=== PATIENT | male | born 1960 | race Caucasian/White ===

== ENCOUNTER 2016-07-26 20:47 | Observation (INO) | payer OTHER ==
[2016-07-26] MEDS ORDERED: NITROGLYCERIN 2% OINTMENT - 1GM PACKET TD ONE (21:13)
--- NOTE | 2016-07-26 21:15 | PDOC ---
[id number] No Limitations - History of Present Illness Initial Comments: 07/26/16 21:59 The patient is a 55 year old male with a significant past medical history of hypertension, angioplasty and hyperlipidemia who presents to the ED with lightheadedness, chest pain and SOB. Patient reports chest tightness. He notes that he feels flushed. He also reports a headache. Patient notes that he ran out of his hypertension medication and have not taken it for 2 weeks. He also notes that he was diagnosed with pneumonia 5 days ago and finished his course of abx this week. Patient notes that he is going through hard time and has gained some undesired weight and is concerned about his health. <Chacha Sullivan - Last Filed: 07/26/16 22:01> <Willow Collins - Last Filed: 07/27/16 04:10> - General Chief Complaint: Chest Pain Stated Complaint: CHEST PAIN/BP PROBLEM Time Seen by Provider: 07/26/16 21:07 Past History <Chacha Sullivan - Last Filed: 07/26/16 22:01> - Past Medical History HTN: Yes Hypercholesterolemia: Yes - Surgical History Abdominal Surgery: Yes (hernia repair-LEFT) Cardiac Surgery: Yes (CARDIAC CATH-NEGATIVE) - Immunization History Immunization Up to Date: Yes - Psycho/Social/Smoking Cessation Hx Anxiety: Yes Suicidal Ideation: No Smoking History: Never smoked Have you smoked in the past 12 months: No Number of Cigarettes Smoked Daily: 0 Information on smoking cessation initiated: No Hx Alcohol Use: Yes (3x/week) Drug/Substance Use Hx: No Substance Use Type: Alcohol <Willow Collins - Last Filed: 07/27/16 04:10> - Past Medical History Allergies/Adverse Reactions: Allergies Allergy/AdvReac Type Severity Reaction Status Date / Time No Known Drug Allergies Allergy Verified 07/26/16 20:49 shellfish derived Allergy "PALATE Verified 07/26/16 20:49 BECOMES ITCHY-AFTER EATING LOBSTER" Home Medications: Ambulatory Orders Aspirin [ASA -] 81 mg PO DAILY 01/03/14 Losartan Potassium 25 mg PO DAILY 01/23/14 Moxifloxacin HCl [Avelox] 400 mg PO DAILY 07/27/16 Prednisone [Deltasone -] 10 mg PO DAILY 07/27/16 Review of Systems - Review of Systems Able to Perform ROS?: Yes Comments:: 07/26/16 22:00 GENERAL/CONSTITUTIONAL: +weakness. No fever or chills. HEAD, EYES, EARS, NOSE AND THROAT: No change in vision. No ear pain or discharge. No sore throat. CARDIOVASCULAR:+ chest pain +shortness of breath, lightheadedness. RESPIRATORY: No cough, wheezing, or hemoptysis. GASTROINTESTINAL: No nausea, vomiting, diarrhea or constipation. GENITOURINARY: No dysuria, frequency, or change in urination. MUSCULOSKELETAL: No joint or muscle swelling or pain. No neck or back pain. SKIN: No rash NEUROLOGIC: + headache, +vertigo, loss of consciousness, or change in strength/ sensation. ENDOCRINE: No increased thirst. No abnormal weight change. HEMATOLOGIC/LYMPHATIC: No anemia, easy bleeding, or history of blood clots. ALLERGIC/IMMUNOLOGIC: No hives or skin allergy. <Chacha Sullivan - Last Filed: 07/26/16 22:01> *Physical Exam - Vital Signs Last Vital Signs Temp Pulse Resp BP Pulse Ox 97.8 F 96 H 16 165/101 97 07/26/16 20:50 07/26/16 20:50 07/26/16 20:50 07/26/16 20:50 07/26/16 20:50 - Physical Exam Comments: 07/26/16 22:01 GENERAL: Awake, alert, and fully oriented, in no acute distress HEAD: No signs of trauma EYES: PERRLA, EOMI, sclera anicteric, conjunctiva clear ENT: +R TM bulging, erythematous and edematous. Hearing grossly normal, nares patent, oropharynx clear without exudates. Moist mucosa NECK: Normal ROM, supple, no lymphadenopathy, JVD, or masses LUNGS: Breath sounds equal, clear to auscultation bilaterally. No wheezes, and no crackles HEART: Regular rate and rhythm, normal S1 and S2, no murmurs, rubs or gallops ABDOMEN: Soft, nontender, normoactive bowel sounds. No guarding, no rebound. No masses EXTREMITIES: Normal range of motion, no edema. No clubbing or cyanosis. No cords, erythema, or tenderness NEUROLOGICAL: Cranial nerves II through XII grossly intact. Normal speech, normal gait SKIN: Warm, Dry, normal turgor, no rashes or lesions noted. <Chacha Sullivan - Last Filed: 07/26/16 22:01> - Vital Signs Last Vital Signs Temp Pulse Resp BP Pulse Ox 97.8 F 96 H 16 165/101 97 07/26/16 20:50 07/26/16 20:50 07/26/16 20:50 07/26/16 20:50 07/26/16 20:50 <Willow Collins - Last Filed: 07/27/16 04:10> Heart Score/ECG Review #1 07/26/16 22:[address] Collins. Impression: normal sinus rhythm, vent rate at 94 bpm. <Chacha Sullivan - Last Filed: 07/26/16 22:01> ED Treatment Course - LABORATORY CBC & Chemistry Diagram: 07/26/16 21:19 07/26/16 21:19 - ADDITIONAL ORDERS Additional order review: 07/26/16 21:19 RBC 4.68 MCV 89.5 MCHC 33.8 RDW 14.1 MPV 7.8 Neutrophils % 60.1 Lymphocytes % 28.3 D Monocytes % 10.8 H Eosinophils % 0.3 Basophils % 0.5 - Medications Given in the ED: ED Medications Discontinued Medications Generic Name Dose Route Start Last Admin Trade Name Jg PRN Reason Stop Dose Admin Aspirin 162 mg 07/26/16 21:24 07/26/16 21:39 Asa - PO 07/26/16 21:25 162 mg ONCE ONE Administration Nitroglycerin 1 inch 07/26/16 21:13 07/26/16 21:39 Nitro-Bid 2% Paste - TD 07/26/16 21:14 1 inch ONCE ONE Administration <Chacha Sullivan - Last Filed: 07/26/16 22:01> - LABORATORY CBC & Chemistry Diagram: 07/26/16 21:19 07/26/16 21:19 <Willow Collins - Last Filed: 07/27/16 04:10> Medical Decision Making - Medical Decision Making 07/27/16 04:06 Pt comes with chest pain. He states that he hasn't had his BP meds in 2 weeks, as he ran out and he just never followed up to refill them. He has been under stress as he is and he has a 12 yo daughter, and he works and he has been drinking too much alcohol and eating foods that are bad for him. He also states that he had bilateral hip replacement and he cannot run or exercise and as a result he gained a lot of weight. Pt has a normal sinus EKG, same pattern as old. He has a clear CXR and he has initial normal troponin and CPK. His CK MB is elevated. His BP came down with metoprolol, enalapril, and SLNTG. He was given asa; also tylenol for headache <Willow Collins - Last Filed: 07/27/16 04:10> *DC/Admit/Observation/Transfer - Attestations Scribe Attestion: 07/26/16 22:01 Documentation prepared by DUYEN Chung, acting as certified court/medical interpreter for Willow Collins MD. <Chacha Sullivan - Last Filed: 07/26/16 22:01> - Discharge Dispostion Admit: Yes <Willow Collins - Last Filed: 07/27/16 04:10> Diagnosis at time of Disposition: Chest pain Qualifiers: Chest pain type: unspecified Qualified Code(s): R07.9 - Chest pain, unspecified
[2016-07-26] MEDS ORDERED: ASPIRIN 81 MG CHEWABLE TABLETS PO ONE (21:24)
[2016-07-26] MEDS ORDERED: ASPIRIN 81 MG CHEWABLE TABLETS ONE (21:31)
[2016-07-26 21:50] LABS: BASOPHIL 0.5 % (0-2.0); EOSINOPHIL 0.3 % (0-4.5); MCH 30.2 pg (25.7-33.7); MCHC 33.8 g/dl (32.0-35.9); MEAN CELL VOLUME 89.5 fl (80-96); MEAN PLT VOLUME 7.8 fl (7.5-11.1); NEUTROPHILS 60.1 % (42.8-82.8); PLATELET COUNT 311 K/MM3 (134-434); RDW 14.1 % (11.9-15.9); WHITE BLOOD COUNT 9.3 K/mm3 (4.0-10.0)
[2016-07-26] MEDS ORDERED: METOPROLOL TARTRATE 50 MG TABLET (FP) PO ONE (21:51)
[2016-07-26] MEDS ORDERED: METOPROLOL TARTRATE 5 MG/5 ML VIAL IVPUSH ONE (21:51)
[2016-07-26] MEDS ORDERED: LOSARTAN 50MG/HCTZ 12.5MG 1 TAB (FP) PO ONE (21:51)
[2016-07-26] MEDS ORDERED: METOPROLOL TARTRATE 5 MG/5 ML VIAL ONE (22:06)
[2016-07-26] MEDS ORDERED: METOPROLOL TARTRATE 50 MG TABLET (FP) ONE (22:06)
[2016-07-26 22:15] LABS: ALBUMIN 3.4 g/dl (3.4-5.0); ANION GAP 12 (8-16); BILIRUBIN,TOTAL 0.4 mg/dL (0.2-1.0); CALCIUM 8.5 mg/dL (8.5-10.1); CO2 28 mmol/L (21-32); CREATININE 1.2 mg/dL (0.7-1.3); GLUCOSE,RANDOM 123 mg/dL (74-106); SGOT/AST 44 U/L (15-37); SGPT/ALT 51 U/L (12-78); TOT PROT 6.3 g/dl (6.4-8.2)
[2016-07-26 22:17] LABS: ALK PHOS 77 U/L (45-117); TROPONIN I < 0.02 ng/ml (0.00-0.05)
[2016-07-26] MEDS ORDERED: MAGNESIUM SULF 50% (8.12 MEQ/2 ML-1 GM VIAL) IVPB ONE (22:27)
[2016-07-26] MEDS ORDERED: POTASSIUM CHLORIDE TABS 20 MEQ TABLET.ER (FP) PO ONE ×2 (22:27→22:45)
[2016-07-26] MEDS ORDERED: MAGNESIUM SULF 50% (8.12 MEQ/2 ML-1 GM VIAL) ONE (22:45)
[2016-07-26] MEDS ORDERED: ACETAMINOPHEN 325 MG TABLET (FP) PO ONE (23:56)
[2016-07-27] MEDS ORDERED: ACETAMINOPHEN 325 MG TABLET (FP) ONE ×2 (00:04→03:14)
--- NOTE | 2016-07-27 00:46 | PN ---
<Keanu Castillo - Last Filed: 07/27/16 00:46> Teaching Attending Note Name of Resident: Meron Cox ATTENDING PHYSICIAN STATEMENT I saw and evaluated the patient. I reviewed the resident's note and discussed the case with the resident. I agree with the resident's findings and plan as documented. SUBJECTIVE: OBJECTIVE: ASSESSMENT AND PLAN: <Robyn Sandhu - Last Filed: 07/27/16 02:54> Teaching Attending Note ATTENDING PHYSICIAN STATEMENT I saw and evaluated the patient. I reviewed the resident's note and discussed the case with the resident. I agree with the resident's findings and plan as documented. SUBJECTIVE: Patient is a 55 yo M with a PMHx of HTN and HLD who presents with chest pain. He describes the pain as chest tightness which was still present upon evaluation. Patient reports feeling increased anxiety yesterday after he stopped drinking. Patient notes he drinks .5 pints 2-3 days a week. He reports that he has been more stressed recently and has gained wait s/p hip surgery. Patient reports associated SOB for the past 4 days, headache, and diaphoresis. Patient also reports having pneumonia for the past 5 days and still feels congested. Denies: vision changes, nausea, fever, chills, vomiting, diarrhea and abdominal pain. Family Hx: Mother had CHF OBJECTIVE: Last Vital Signs Temp Pulse Resp BP Pulse Ox 97.8 F 79 19 140/92 100 07/26/16 20:50 07/26/16 22:18 07/26/16 22:18 07/26/16 23:47 07/26/16 22:18 GENERAL: Awake, alert, and fully oriented. Obese male resting in bed in no acute distress HEENT: Atraumatic. PERRLA, EOMI. Moist mucosa. No JVD LUNGS: No distress, speaks full sentences, clear to auscultation bilaterally HEART: Regular rate and rhythm, normal S1 and S2, no murmurs, rubs or gallops, peripheral pulses normal and equal bilaterally. ABDOMEN: Soft, nontender, normoactive bowel sounds. No guarding, no rebound. No masses EXTREMITIES: Normal inspection, Normal range of motion, no edema. No clubbing or cyanosis. NEUROLOGICAL: Cranial nerves II through XII grossly intact. Normal speech, normal gait, no focal sensorimotor deficits SKIN: Warm, Dry, normal turgor, no rashes or lesions noted. CBCD WBC 9.3 K/mm3 (4.0-10.0) 07/26/16 21:19 RBC 4.68 M/mm3 (4.00-5.60) 07/26/16 21:19 Hgb 14.1 GM/dL (11.7-16.9) 07/26/16 21:19 Hct 41.9 % (35.4-49) 07/26/16 21:19 MCV 89.5 fl (80-96) 07/26/16 21:19 MCHC 33.8 g/dl (32.0-35.9) 07/26/16 21:19 RDW 14.1 % (11.9-15.9) 07/26/16 21:19 Plt Count 311 K/MM3 (134-434) 07/26/16 21:19 MPV 7.8 fl (7.5-11.1) 07/26/16 21:19 CMP Sodium 145 mmol/L (136-145) 07/26/16 21:19 Potassium 3.3 mmol/L (3.5-5.1) L 07/26/16 21:19 Chloride 105 mmol/L (98-107) 07/26/16 21:19 Carbon Dioxide 28 mmol/L (21-32) 07/26/16 21:19 Anion Gap 12 (8-16) 07/26/16 21:19 BUN 17 mg/dL (7-18) 07/26/16 21:19 Creatinine 1.2 mg/dL (0.7-1.3) 07/26/16 21:19 Creat Clearance w eGFR > 60 (>60) 07/26/16 21:19 Calcium 8.5 mg/dL (8.5-10.1) 07/26/16 21:19 Total Bilirubin 0.4 mg/dL (0.2-1.0) 07/26/16 21:19 AST 44 U/L (15-37) H D 07/26/16 21:19 ALT 51 U/L (12-78) D 07/26/16 21:19 Alkaline Phosphatase 77 U/L (45-117) 07/26/16 21:19 Total Protein 6.3 g/dl (6.4-8.2) L 07/26/16 21:19 Albumin 3.4 g/dl (3.4-5.0) 07/26/16 21:19 ASSESSMENT AND PLAN: 55 yo M with a PMHx of HTN and HLD who presents with chest pain. 1.) Chest pain, atypical, anxiety related -Heart score 3 -Trend ECG and troponins -Aspirin -Nitro/morphine PRN pain -O2 -Received BB in ED 2.) SOB probably related pneumonia -Consider Echo can be done outpatient 3.) HLD -Check lipid panel -Continue home meds 4.) HTN -Continue home meds 5.) Hypokalemia -Replete -Check Mg 6.) DVT ppx -Low risk ambulate -SCDs Place in observation Tele Documentation prepared by Robyn Sandhu, acting as biomedical field service engineer for Keanu Castillo M.D.
--- NOTE | 2016-07-27 02:21 | HP ---
CHIEF COMPLAINT: Chest tightness from anxiety PCP: Not on staff HISTORY OF PRESENT ILLNESS: Patient is a 55 year old male with a PMHx of HTN, HLD, and anxiety who presents to the ED complaining of constant chest tightness associated with diaphoresis and headache that began one day ago and associates it with anxiety. Patient states he noticed the chest tightness and anxiety begins after drinking vodka, which he does 2-3 times a week. Patient also reports he's been more stressed and anxious lately due to his recent weight gain s/p hip surgery as well his recent diagnosis of pneumonia that he just completed a course of antibiotics for. Patient also reports shortness of breath for the last week due to his recent diagnosis of pneumonia, which escalated his anxiety. He does admit to not taking his blood pressure medications for over two week because he did not cloth picker his medications from the pharmacy. Otherwise, Patient denies fever, chills, nausea, vomiting, abdominal pain, diarrhea, acute visual changes, dizziness, dysuria, hematuria, frequency. ER course was notable for: (1) ASA, Hyzaar, Potassim chloride, Lopressor PO, Lopressor IVP, Magnesium Sulfate, Nitroglycerin 2% Paste, Tylenol (2) Chest x-ray (3) EKG Recent Travel: Denies PAST MEDICAL HISTORY: HTN, HLD, and anxiety PAST SURGICAL HISTORY: Left Hernia repair Social History: Smoking: Denies Alcohol: Half a pint 2-3 days a week Drugs: Denies Family History: Mother had CHF Allergies: Shellfish derived Allergy (Verified 07/26/16 20:49) "PALATE BECOMES ITCHY-AFTER EATING LOBSTER" HOME MEDICATIONS: Medication Instructions Recorded Aspirin [ASA -] 81 mg PO DAILY 01/03/14 Losartan Potassium 25 mg PO DAILY 01/23/14 Moxifloxacin HCl [Avelox] 400 mg PO DAILY 07/27/16 Prednisone [Deltasone -] 10 mg PO DAILY 07/27/16 REVIEW OF SYSTEMS CONSTITUTIONAL: diaphoresis Absent: fever, chills, generalized weakness, malaise, loss of appetite, weight change HEENT: Absent: rhinorrhea, nasal congestion, throat pain, throat swelling, difficulty swallowing, mouth swelling, ear pain, eye pain, visual changes CARDIOVASCULAR: chest tightness Absent: syncope, palpitations, irregular heart rate, lightheadedness, peripheral edema RESPIRATORY: cough, shortness of breath Absent: dyspnea with exertion, orthopnea, wheezing, stridor, hemoptysis GASTROINTESTINAL: Absent: abdominal pain, abdominal distension, nausea, vomiting, diarrhea, constipation, melena, hematochezia GENITOURINARY: Absent: dysuria, frequency, urgency, hesitancy, hematuria, flank pain, genital pain MUSCULOSKELETAL: Absent: myalgia, arthralgia, joint swelling, back pain, neck pain SKIN: Absent: rash, itching, pallor HEMATOLOGIC/IMMUNOLOGIC: Absent: easy bleeding, easy bruising, lymphadenopathy, frequent infections ENDOCRINE: Absent: unexplained weight gain, unexplained weight loss, heat intolerance, cold intolerance NEUROLOGIC: Absent: headache, focal weakness or paresthesias, dizziness, unsteady gait, seizure, mental status changes, bladder or bowel incontinence PSYCHIATRIC: anxiety Absent: depression, suicidal or homicidal ideation, hallucinations. PHYSICAL EXAMINATION GENERAL: Awake, alert, and fully oriented, in no acute distress. HEENT: Normal with no signs of trauma. Pupils equal, round and reactive to light , extraocular movements intact, sclera anicteric, conjunctiva clear. Oropharynx clear without exudates. Moist mucous membranes. NECK: Normal range of motion, supple without lymphadenopathy, JVD, or masses. LUNGS: Breath sounds equal, clear to auscultation bilaterally. No wheezes, and no crackles. No accessory muscle use. HEART: Regular rate and rhythm, normal S1 and S2 without murmur, rub or gallop. ABDOMEN: Soft, nontender, not distended, normoactive bowel sounds, no guarding, no rebound, no masses. No hepatomegaly or splenomegaly. MUSCULOSKELETAL: Normal range of motion at all joints. No bony deformities or tenderness. No CVA tenderness. EXTREMITIES: No calf tenderness. No peripheral edema. NEUROLOGICAL: No focal deficits. Normal speech. SKIN: Warm, dry, normal turgor, no rashes or lesions noted. Laboratory Results - last 24 hr 07/26/16 07/26/16 07/26/16 21:19 21:19 21:19 WBC 9.3 RBC 4.68 Hgb 14.1 Hct 41.9 MCV 89.5 MCHC 33.8 RDW 14.1 Plt Count 311 MPV 7.8 Neutrophils % 60.1 Lymphocytes % 28.3 D Monocytes % 10.8 H Eosinophils % 0.3 Basophils % 0.5 Sodium 145 Potassium 3.3 L Chloride 105 Carbon Dioxide 28 Anion Gap 12 BUN 17 Creatinine 1.2 Creat Clearance w eGFR > 60 Random Glucose 123 H Calcium 8.5 Total Bilirubin 0.4 AST 44 H D ALT 51 D Alkaline Phosphatase 77 Creatine Kinase 196 Creatine Kinase Index 2.0 CK-MB (CK-2) 3.927 H CK-MB (CK-2) Rel Index Cancelled Troponin I < 0.02 Total Protein 6.3 L Albumin 3.4 07/27/16 04:35 WBC RBC Hgb Hct MCV MCHC RDW Plt Count MPV Neutrophils % Lymphocytes % Monocytes % Eosinophils % Basophils % Sodium Potassium Chloride Carbon Dioxide Anion Gap BUN Creatinine Creat Clearance w eGFR Random Glucose Calcium Total Bilirubin AST ALT Alkaline Phosphatase Creatine Kinase Creatine Kinase Index CK-MB (CK-2) CK-MB (CK-2) Rel Index Troponin I 0.02 Total Protein Albumin Chest X-ray: No acute Pathology EKG: NSR @94 BPM, (-) ST-T changes ASSESSMENT/PLAN: Patient is 55 year old male with a PMHx of HTN, HLD, and anxiety who presented for constant atypical chest pain that began one day ago associated with diaphoresis, headache, and shortness of breath, and anxiety. Patient admitted to telemetry for further monitoring and management. Atypical Chest Pain -Likely anxiety related -Heart score: 3 -Troponin negative x1. Second pending -ASA daily -Nitroglycerin given in ED -Will require ECHO done as outpatient Shortness of breath -Likely from recent pneumonia -Continue Nasal Cannula -Completed antibiotic Moxifloxacin 400mg daily -Continue Prednisone 10mg daily HTN -Continue Cozaar 25mg po -Continue to monitor BP HLD -On no medications Anxiety -Xanax 0.5mg daily F/E/N -On no fluids -Hypokalemia. Potassium chloride given -Sodium and cholesterol controlled diet Prophylaxis -SCD's for DVT -No GI needed Disposition -Full code -Admitted to telemetry for observation. Will continue to monitor on cardiac monitoring. Visit type - Emergency Visit Emergency Visit: Yes ED Registration Date: 07/27/16 Care time: The patient presented to the Emergency Department on the above date and was hospitalized for further evaluation of their emergent condition. - New Patient This patient is new to me today: Yes Date on this admission: 07/27/16 - Critical Care Critical Care patient: No
[2016-07-27] MEDS ORDERED: ALPRAZolam 0.25 MG TABLET PO ONE (02:26)
[2016-07-27] MEDS ORDERED: ALPRAZolam 0.25 MG TABLET ONE (02:42)
[2016-07-27] MEDS ORDERED: ACETAMINOPHEN 325 MG TABLET (FP) PO ONE (02:50)
[2016-07-27] MEDS: INSULIN SLIDING SCALE (NOVOLOG) 1 VIAL SQ SCH ×2 (07:12→11:23)
[2016-07-27 09:22] LABS: ALBUMIN 3.4 g/dl (3.4-5.0); ANION GAP 11 (8-16); CALCIUM 8.7 mg/dL (8.5-10.1); CO2 29 mmol/L (21-32); GLUCOSE,RANDOM 103 mg/dL (74-106); MAGNESIUM 2.2 mg/dL (1.8-2.4); PHOSPHOROUS 3.4 mg/dL (2.5-4.9); SGOT/AST 52 U/L (15-37); SGPT/ALT 53 U/L (12-78)
[2016-07-27 09:24] LABS: ALK PHOS 62 U/L (45-117); BILIRUBIN,TOTAL 0.8 mg/dL (0.2-1.0); CREATININE 1.1 mg/dL (0.7-1.3); TOT PROT 6.4 g/dl (6.4-8.2)
[2016-07-27] MEDS ORDERED: predniSONE 10 MG TABLET (UD) PO SCH (10:00)
[2016-07-27] MEDS ORDERED: LOSARTAN POTASSIUM 25 MG TABLET PO SCH (10:00)
[2016-07-27] MEDS ORDERED: ASPIRIN 81 MG CHEWABLE TABLETS PO SCH (10:00)
--- NOTE | 2016-07-27 10:20 | EKG ---
Test Reason : Blood Pressure : / mmHG Vent. Rate : 094 BPM Atrial Rate : 094 BPM P-R Int : 150 ms QRS Dur : 090 ms QT Int : 350 ms P-R-T Axes : 056 040 026 degrees QTc Int : 437 ms NORMAL SINUS RHYTHM NORMAL ECG WHEN COMPARED WITH ECG OF 21-DEC-2015 18:38, NONSPECIFIC T WAVE ABNORMALITY NOW EVIDENT IN ANTERIOR LEADS Confirmed by TYLER BLACKWELL MD ([id number]) on 07/27/2016 10:20:08 AM Referred By: Confirmed By:TYLER BLACKWELL MD
--- NOTE | 2016-07-27 10:33 | CON.CARD ---
Consult Consult Specialty:: Cardiology Referred by:: Hospitalist Reason for Consultation:: Chest pain - History of Present Illness Chief Complaint: cough, fever, chest pain History of Present Illness: 55 year old man with a history of HTN, mild non-obstructive CAD on cardiac cath 12/2014 (no PCI), etoh abuse, last seen in the office 02/2015, ran out of HTN meds a few weeks ago, came to ER with c/o subjective fevers, cough, chest tightness, sob, lightheadedness. Pt states that he was seen at an urgent care recently and given antibiotics and a steroid for presumed PNA or bronchitis. Pt. seen and examined in the ER in nad. states that he is feeling better but still feeling weak. denies any current chest pain. no pnd, orthopnea, or LE edema. no syncope or near syncope. - History Source History Provided By: Patient, Medical Record Limitations to Obtaining History: No Limitations - Past Medical History Cardio/Vascular: Yes: CAD (mild non-obstructive CAD), HTN Pulmonary: Yes: Pneumonia Infectious Disease: Yes: Other (s/p PNA) Psych: Yes: Addictions (Hx of alcoholism denies IVDA & drug usage.) Musculoskeletal: Yes: Other (thigh pains with gait impairement) Rheumatology: Yes: Other (knee and joint aches) - Past Surgical History Past Surgical History: Yes: Hernia Repair - Alcohol/Substance Use Hx Alcohol Use: Yes (3x/week) History of Substance Use: reports: None - Smoking History Smoking history: Never smoked Have you smoked in the past 12 months: No Aproximately how many cigarettes per day: 0 - Social History Usual Living Arrangement: Alone ADL: Independent Occupation: salesperson History of Recent Travel: No Home Medications - Allergies Allergies/Adverse Reactions: Allergies Allergy/AdvReac Type Severity Reaction Status Date / Time No Known Drug Allergies Allergy Verified 07/26/16 20:49 shellfish derived Allergy "PALATE Verified 07/26/16 20:49 BECOMES ITCHY-AFTER EATING LOBSTER" - Home Medications Home Medications: Ambulatory Orders Losartan Potassium 25 mg PO DAILY 01/23/14 Moxifloxacin HCl [Avelox] 400 mg PO DAILY 07/27/16 Prednisone [Deltasone -] 10 mg PO DAILY 07/27/16 Family Disease History - Family Disease History Family Disease History: Heart Disease: Grandparent (Maternal: [place] in his 50s), Mother ([place] in 50s) Review of Systems - Review of Systems Constitutional: reports: Chills, Diaphoresis, Fever, Malaise, Weakness Eyes: denies: No Symptoms, Blind Spots, Blurred Vision, Double Vision, Eye Pain , Floaters, Photophobia, Recent Change in Vision, Other HENT: denies: No Symptoms, Difficult Swallowing, Ear Discharge, Ear Pain, Epistaxis, Gingival Bleeding, Hearing Loss, Mouth Swelling, Nasal Congestion, Ocular Prosthesis, Throat Pain, Toothache, Ringing in Ears, Other Neck: denies: No Symptoms, Decreased ROM, Lumps, Pain on Movement, Stiffness, Swollen Glands, Tenderness, Other Cardiovascular: reports: Chest Pain, Shortness of Breath. denies: No Symptoms, Edema, Palpitations, Other Respiratory: reports: Cough, SOB, SOB on Exertion. denies: No Symptoms, Exercise Intolerance, Hemoptysis, Orthopnea, PND, Snoring, Wheezing, Other Gastrointestinal: denies: No Symptoms, Abdominal Pain, Bloating, Constipation, Diarrhea, Dysphagia, Indigestion, Melena, Nausea, Rectal Bleeding, Vomiting, Vomiting Blood, Other Genitourinary: denies: No Symptoms, Burning, Discharge, Dysuria, Flank Pain, Frequency, Hematuria, Incontinence, Lesions, Menses, Pain, Testicular Mass, Testicular Pain, Testicular Swelling, Urgency, Vaginal Bleeding, Other Breasts: denies: No Symptoms Reported, See HPI, Breast Implants, Discharge from Nipple, Lumps, Pain, Skin Changes, Other Musculoskeletal: denies: No Symptoms, Back Pain, Crepitus, Decreased ROM, Extremity Pain, Joint Pain, Joint Swelling, Muscle Pain, Muscle Cramps, Muscle Weakness, Other Integumentary: denies: No Symptoms, Blister, Bruising, Change in Color, Eczema, Erythema, Incision, Lesions, Lump, Pallor, Pruritis, Rash, Wound, Other Neurological: denies: No Symptoms, Change in LOC, Change in Speech, Confusion, Dizziness, Headache, Incoordination, Numbness, Parasthesia, Pre-Existing Deficit , Seizure, Syncope, Tremors, Unsteady Gait, Weakness, Other Endocrine: denies: No Symptoms, Excessive Sweating, Flushing, Increased Hunger, Increased Thirst, Intolerance to Cold, Intolerance to Heat, Unexplained Weight Gain, Unexplained Weight Loss, Other Hematology/Lymphatic: denies: No Symptoms, Easily Bruised, Excessive Bleeding, Swollen Glands, Other Psychiatric: denies: No Symptoms, Altered Sleep Pattern, Anxiety, Depression, Hallucinations, Panic, Paranoia, Suicidal, Other - Risk Factors Known Risk Factors: Yes: Hypercholesterolemia, Hypertension Vital Signs: Vital Signs Temperature 98.2 F 07/27/16 07:26 Pulse Rate 58 L 07/27/16 07:26 Respiratory Rate 18 07/27/16 07:26 Blood Pressure 149/100 07/27/16 07:26 O2 Sat by Pulse Oximetry (%) 97 07/27/16 07:28 Constitutional: Yes: No Distress, Calm, Obese Eyes: Yes: WNL, Conjunctiva Clear, EOM Intact, PERRL HENT: Yes: WNL, Atraumatic, Normocephalic Neck: Yes: WNL, Supple, Trachea Midline Respiratory: Yes: WNL, Regular, CTA Bilaterally. No: Rales, Rhonchi, Wheezes Gastrointestinal: Yes: WNL, Normal Bowel Sounds, Soft. No: Distention, Tenderness Renal/: Yes: WNL Cardiovascular: Yes: WNL, Regular Rate and Rhythm. No: Bradycardia, Tachycardia , Pulse Irregular, Gallop, Rub, Varicosities JVD: No Carotid Bruit: No PMI: Non-Displaced Heart Sounds: Yes: S1, S2. No: Split S2, S3, S4, Clicks, Gallop, Rub, Bruit Murmur: No: Systolic Murmur, Diastolic Murmur Musculoskeletal: Yes: WNL Extremities: Yes: WNL Edema: No Peripheral Pulses WNL: Yes Peripheral Pulses: 2+ Left Doralis Pedis, 2+ Right Dorsalis Pedis Integumentary: Yes: WNL Neurological: Yes: WNL, Alert, Oriented, Cran Nerves II-XII Intact ...Motor Strength: WNL Psychiatric: Yes: WNL, Alert, Oriented - Other Data Labs, Other Data: CBC, BMP 07/27/16 04:35 Troponin, BNP 07/27/16 04:35 Troponin I 0.02 Troponin, BNP 07/27/16 04:35 Troponin I 0.02 ekg-nsr 94bpm, poor R progression, nonspecific St abnl with T inversions V2, V3 , III, aVF Echo: Report Reviewed Prior Cardiac Procedures: Cardiac Catheterization Imaging - Results Chest X-ray: Report Reviewed, Image Reviewed EKG: Report Reviewed, Image Reviewed Other: Report Reviewed, Image Reviewed Problem List - Problems (1) Chest pain Code(s): R07.9 - CHEST PAIN, UNSPECIFIED Qualifiers: Chest pain type: unspecified Qualified Code(s): R07.9 - Chest pain, unspecified (2) Alcohol dependence, continuous Code(s): F10.20 - ALCOHOL DEPENDENCE, UNCOMPLICATED (3) Bronchitis Code(s): J40 - BRONCHITIS, NOT SPECIFIED ACUTE OR CHRONIC (4) Hypertension Code(s): I10 - ESSENTIAL (PRIMARY) HYPERTENSION (5) Pneumonia Code(s): J18.9 - PNEUMONIA, UNSPECIFIED ORGANISM Assessment/Plan 55 year old man with a history of HTN, mild non-obstructive CAD on cardiac cath 12/2014 (no PCI), etoh abuse, last seen in the office 02/2015, ran out of HTN meds a few weeks ago, came to ER with c/o subjective fevers, cough, chest tightness, sob, lightheadedness. Pt states that he was seen at an urgent care recently and given antibiotics and a steroid for presumed PNA or bronchitis. Chest pain-atypical, unlikely ACS -nonspecific Abnl on ekg not sig changed from prior ekgs -cardiac cath 12/2014 showed very mild non-obstructive CAD -cardiac enzymes wnl here -symptoms likely due to his current URI -f/up 3rd set of cardiac enzymes, if wnl pt would be acceptable for discharge home from a cardiac standpoint with a plan for close follow up within 1-2 weeks and will consider a stress test at that time -cont ASA 81mg daily HTN-uncontrolled, urgency -pt has not been seen in over 1.5 years -he ran out of losartan recently -will increase Losartan to 50mg daily, add nifedipine er 30mg daily, and hctz 25mg daily -repeat BP is now well controlled -pt should follow up within 1-2 weeks of discharge
[2016-07-27] MEDS ORDERED: LOSARTAN POTASSIUM 25 MG TABLET PO ONE (10:41)
[2016-07-27] MEDS ORDERED: LOSARTAN POTASSIUM 50 MG TABLET (FP) PO SCH (10:41)
[2016-07-27] MEDS ORDERED: LOSARTAN POTASSIUM 25 MG TABLET ONE (10:44)
[2016-07-27] MEDS ORDERED: NIFEdipine 10 MG CAPSULE (FP) ONE (10:45)
[2016-07-27] MEDS ORDERED: HYDROCHLOROTHIAZIDE 25 MG TABLET (FP) PO SCH (10:45)
[2016-07-27] MEDS ORDERED: NIFEdipine E.R. 30 MG TABLET (FP) PO SCH (10:45)
[2016-07-27 11:44] VITALS: BMI 37.3
[2016-07-27 11:59] LABS: TROPONIN I < 0.02 ng/ml (0.00-0.05)
--- NOTE | 2016-07-27 13:11 | DS ---
[id number] Rate 17 07/27/16 11:38 Blood Pressure 117/74 07/27/16 11:38 O2 Sat by Pulse Oximetry (%) 97 07/27/16 11:38 Labs: CBC, BMP 07/27/16 04:35 Discharge Summary Reason For Visit: CHEST PAIN Current Active Problems Chest pain (Acute) Palpitations (Acute) Hospital Course: 55 year old man with a history of HTN, mild non-obstructive CAD on cardiac cath 12/2014 (no PCI), etoh abuse, last seen in the office 02/2015, ran out of HTN meds a few weeks ago, came to ER with c/o subjective fevers, cough, chest tightness, sob, lightheadedness. Pt states that he was seen at an urgent care recently and given antibiotics and a steroid for presumed PNA or bronchitis. Pt. seen and examined in the ER in nad. states that he is feeling better but still feeling weak. denies any current chest pain. no pnd, orthopnea, or LE edema. no syncope or near syncope. Chest pain-atypical, unlikely ACS -nonspecific Abnl on ekg not sig changed from prior ekgs -cardiac cath 12/2014 showed very mild non-obstructive CAD -cardiac enzymes wnl here -symptoms likely due to his current URI -F/u outpatient cardiology within 1 week -cont ASA 81mg daily HTN-uncontrolled, urgency -pt has not been seen in over 1.5 years -he ran out of losartan recently -will increase Losartan to 50mg daily, add nifedipine er 30mg daily, and hctz 25mg daily -repeat BP is now well controlled -pt should follow up within 1-2 weeks of discharge This discharge took 35 minutes to complete. Condition: Improved - Instructions Diet, Activity, Other Instructions: Please return to the ED with new, persistent, or worsening symptoms. Please follow-up with providers as indicated. Referrals: Gray Carlton MD [Staff Physician] - (Please follow-up with pcp within 1 week. ) Bryan Velasquez MD [Staff Physician] - (Please follow-up with cardiology within 1 week) Disposition: HOME - Home Medications Comprehensive Discharge Medication List: Ambulatory Orders Aspirin [ASA -] 81 mg PO DAILY tab.chew 07/27/16 Hydrochlorothiazide 25 mg PO DAILY #30 tablet 07/27/16 Losartan Potassium 50 mg PO DAILY #30 tablet 07/27/16 Moxifloxacin HCl [Avelox] 400 mg PO DAILY 07/27/16 Nifedipine ER [Procardia XL -] 30 mg PO DAILY #30 tab.er.24 07/27/16 Prednisone [Deltasone -] 10 mg PO DAILY 07/27/16 This patient is new to me today: Yes Date on this admission: 07/27/16 Emergency Visit: Yes ED Registration Date: 07/27/16 Care time: The patient presented to the Emergency Department on the above date and was hospitalized for further evaluation of their emergent condition. Critical Care patient: No - Discharge Referral Referred to [facility] Yes Physician Referral: Gray Charles MD ([facility])
[2016-07-27 13:39] VITALS: BP 128/80; PULSE 80; TEMP 98.6
[2016-07-27 15:49] LABS: CHOLESTEROL 165 mg/dL (50-200); LDL CHOLESTEROL (ONLY SJRH) 65 mg/dL (5-100)
== END 2016-07-27 13:44 | disposition home or self-care (01) ==
LOC: JER 20:47 → JERBED 07-27 00:50
PROVIDERS: ADMIT Internal Medicine; ATTEND Registered Nurse
DX: R07.89 Other chest pain (principal); I10 Essential (primary) hypertension; E78.5 Hyperlipidemia, unspecified; F41.8 Other specified anxiety disorders; E87.6 Hypokalemia; I25.10 Atherosclerotic heart disease of native coronary artery without angina pectoris; F10.20 Alcohol dependence, uncomplicated; J40 Bronchitis, not specified as acute or chronic; Z95.5 Presence of coronary angioplasty implant and graft
CPT/HCPCS: 36415; 71020-TC; 80053; 80061; 82550; 82553; 83721; 83735; 84100; 84484; 85025; 93005; 93010; 99285-25; G0378

== ENCOUNTER 2016-09-22 16:25 | Emergency (ER) | payer OTHER ==
[2016-09-22 16:47] VITALS: BP 119/63; PULSE 84; TEMP 98.3; BMI 38.0
[2016-09-22] MEDS ORDERED: CEFAZOLIN 1 GM in DEXTROSE 5%-WATER - 50 ML IVPB ONE (16:59)
--- NOTE | 2016-09-22 16:59 | PDOC ---
[id number] No Limitations - History of Present Illness Initial Comments: 09/22/16 17:13 The patient is a 55 year old male with a significant past medical history of hypertension, angioplasty and hyperlipidemia who presents to the ED via EMS with EtOH intoxication and s/p fall. Patient notes that he was drinking today and fell. As per EMS the patient was found outside on the street soaked from the rain and possible urinary incontinence. Patient states that he is drinking heavily because he is depressed. Patient states that he has no complaints and is not experiencing any pain to the areas affected by the fall. He notes that his last Tetanus shot was last year. Allergies: Shellfish Past surgical history: Abdominal hernia repair (left side). Cardiac catheterization, bilateral hip operation Social history: EtOH use. He denies tobacco or drug use. Detox for alcoholism in 2013. <Chacha Sullivan - Last Filed: 09/22/16 17:13> <Aura Bowling - Last Filed: 09/23/16 01:55> <Jennifer Johnson - Last Filed: 09/27/16 17:33> - General Chief Complaint: Alcohol intoxication Stated Complaint: E.T.O.H./FALL Time Seen by Provider: 09/22/16 16:45 Past History <Chacha Sullivan - Last Filed: 09/22/16 17:13> <Aura Bowling - Last Filed: 09/23/16 01:55> - Past Medical History HTN: Yes Hypercholesterolemia: Yes - Surgical History Abdominal Surgery: Yes (hernia repair-LEFT) Cardiac Surgery: Yes (CARDIAC CATH-NEGATIVE) - Immunization History Immunization Up to Date: Yes - Psycho/Social/Smoking Cessation Hx Anxiety: No Suicidal Ideation: No Smoking History: Never smoked Have you smoked in the past 12 months: No Number of Cigarettes Smoked Daily: 0 Information on smoking cessation initiated: No Hx Alcohol Use: No Drug/Substance Use Hx: No Substance Use Type: None <Jennifer Johnson - Last Filed: 09/27/16 17:33> - Past Medical History Allergies/Adverse Reactions: Allergies Allergy/AdvReac Type Severity Reaction Status Date / Time No Known Drug Allergies Allergy Verified 09/22/16 16:44 shellfish derived Allergy "PALATE Verified 09/22/16 16:44 BECOMES ITCHY-AFTER EATING LOBSTER" Home Medications: Ambulatory Orders Hydrochlorothiazide 25 mg PO DAILY #30 tablet 07/27/16 Losartan Potassium 50 mg PO DAILY #30 tablet 07/27/16 Nifedipine ER [Procardia XL -] 30 mg PO DAILY #30 tab.er.24 07/27/16 Cephalexin [Keflex] 500 mg PO BID #20 capsule 09/23/16 Ibuprofen 800 mg PO TID #30 tablet 09/23/16 Tramadol HCl [Ultram -] 50 mg PO Q6H #20 tablet MDD 4 09/23/16 Review of Systems - Review of Systems Able to Perform ROS?: No Comments:: 09/22/16 17:15 Unable to obtain because of intoxication. <Chacha Sullivan - Last Filed: 09/22/16 17:13> *Physical Exam - Vital Signs Last Vital Signs Temp Pulse Resp BP Pulse Ox 98.3 F 84 18 119/63 100 09/22/16 16:40 09/22/16 16:40 09/22/16 16:40 09/22/16 16:40 09/22/16 16:40 - Physical Exam Comments: 09/22/16 17:15 GENERAL: Well developed, well nourished. Awake and alert. No acute distress. HEENT: +4 cm puncture extensive abrasion to the occipital region and 2 cm abrasion to the top/back region of the head PERRLA, EOMI. No conjunctival pallor. Sclera are non-icteric. Moist mucous membranes. Oropharynx is clear. NECK: Supple. Full ROM. No JVD. Carotid pulses 2+ and symmetric, without bruits. No thyromegaly. No lymphadenopathy. CARDIOVASCULAR: Regular rate and rhythm. No murmurs, rubs, or gallops. Distal pulses are 2+ and symmetric. PULMONARY: No evidence of respiratory distress. Lungs clear to auscultation bilaterally. No wheezing, rales or rhonchi. ABDOMINAL: Soft. Non-tender. Non-distended. No rebound or guarding. No organomegaly. Normoactive bowel sounds. MUSCULOSKELETAL Normal range of motion at all joints. No bony deformities or tenderness. No CVA tenderness. EXTREMITIES: +5 cm full thickness right elbow laceration beneath the elbow. No cyanosis. No clubbing. No edema. No calf tenderness. SKIN: Warm and dry. Normal capillary refill. No rashes. No jaundice. NEUROLOGICAL: Alert, awake, appropriate. Cranial nerves 2-12 intact. No deficits to light touch and temperature in face, upper extremities and lower extremities. No motor deficits in the in face, upper extremities and lower extremities. Normoreflexic in the upper and lower extremities. Normal speech. PSYCHIATRIC: Cooperative. Good eye contact. Appropriate mood and affect. <Chacha Sullivan - Last Filed: 09/22/16 17:13> - Vital Signs Last Vital Signs Temp Pulse Resp BP Pulse Ox 98.3 F 84 18 119/63 100 09/22/16 16:40 09/22/16 16:40 09/22/16 16:40 09/22/16 16:40 09/22/16 16:40 <Aura Bowling - Last Filed: 09/23/16 01:55> - Vital Signs Last Vital Signs Temp Pulse Resp BP Pulse Ox 98.3 F 84 18 119/63 100 09/22/16 16:40 09/22/16 16:40 09/22/16 16:40 09/22/16 16:40 09/22/16 16:40 <Jennifer Johnson - Last Filed: 09/27/16 17:33> Procedures - Laceration/Wound Repair Right Upper Posterior Distal Elbow Wound Length: 2.6 to 5.0 cm Wound Explored: clean, no foreign body present Wound's Depth, Shape: into muscle, linear Irrigated w/ Saline: Yes Betadine Prep: Yes Anesthesia: 1% Lidocaine (10cc) Wound Repaired With: Sutures Suture Size/Type: 4:0, other (microfilament polypropylene) Number of Sutures: 8 Layer Closure: No Sterile Dressing Applied: Yes Splint Applied: No Sling Applied: No Progress: 09/23/16 02:01 The 5cm linear laceration is located to the right posterior forearm, just distal to the elbow. 8 sutures were used to close the laceration. <Aura Bowling - Last Filed: 09/23/16 01:55> - Laceration/Wound Repair Right Arm Wound Length: 5.0 to 7.5 cm Wound Explored: no foreign body present Wound's Depth, Shape: into muscle, contused tissue Irrigated w/ Saline: Yes Betadine Prep: Yes Anesthesia: 1% Lidocaine Amount of Anesthetic (ccs): 10 Wound Debrided: moderate Wound Repaired With: Sutures Suture Size/Type: 4:0, proline Number of Sutures: 8 Sterile Dressing Applied: Yes Splint Applied: No Sling Applied: No <Jennifer Johnson - Last Filed: 09/27/16 17:33> ED Treatment Course - LABORATORY CBC & Chemistry Diagram: 09/22/16 17:01 09/22/16 17:03 - ADDITIONAL ORDERS Additional order review: Laboratory Results 09/22/16 09/22/16 17:03 17:03 Sodium 145 Potassium 4.2 Chloride 106 Carbon Dioxide 25 Anion Gap 14 BUN 18 D Creatinine 1.0 Creat Clearance w eGFR > 60 Random Glucose 120 H Calcium 8.7 Total Bilirubin 0.4 D AST 50 H ALT 54 Alkaline Phosphatase 80 D Total Protein 6.9 Albumin 3.6 Alcohol, Quantitative 366.0 H* 09/22/16 17:01 RBC 4.76 MCV 92.8 MCHC 33.2 RDW 14.9 MPV 7.9 Neutrophils % 68.4 Lymphocytes % 21.1 D Monocytes % 8.4 Eosinophils % 1.1 D Basophils % 1.0 - Medications Given in the ED: ED Medications Discontinued Medications Generic Name Dose Route Start Last Admin Trade Name Freq PRN Reason Stop Dose Admin Diphenhydramine HCl 25 mg 09/22/16 21:30 09/22/16 21:45 Benadryl Injection - IM 09/22/16 21:31 25 mg ONCE ONE Administration Cefazolin Sodium 1 gm/ 50 mls @ 100 mls/hr 09/22/16 16:59 09/22/16 17:42 Dextrose IVPB 09/22/16 17:28 100 mls/hr ONCE ONE Administration Lorazepam 2 mg 09/22/16 21:28 09/22/16 21:45 Ativan Injection - IM 09/22/16 21:29 2 mg ONCE ONE Administration <Aura Bowling - Last Filed: 09/23/16 01:55> - LABORATORY CBC & Chemistry Diagram: 09/22/16 17:01 09/22/16 17:03 <Jennifer Johnson - Last Filed: 09/27/16 17:33> Medical Decision Making - Medical Decision Making 09/27/16 17:30 inebriated male BIBA w rt arm full thickness laceration ,scalp abrasion etoh >360 ct scan of head -no acute intracranial pathology ct scan of lumbar,thoraCIC SPINE- NO ACUTE INJURY -pt signed out to overnight physican to discharge when the pt can be steady on his feet <Jennifer Johnson - Last Filed: 09/27/16 17:33> *DC/Admit/Observation/Transfer - Attestations Scribe Attestion: 09/22/16 17:18 Documentation prepared by DUYEN Chung, acting as medical hospital sales for Jennifer Johnson MD. <Chacha Sullivan - Last Filed: 09/22/16 17:13> <Aura Bowling - Last Filed: 09/23/16 01:55> <Jennifer Johnson - Last Filed: 09/27/16 17:33> Diagnosis at time of Disposition: Fall, Laceration of right elbow, Alcohol intoxication - Discharge Dispostion Disposition: HOME Condition at time of disposition: Improved - Prescriptions Prescriptions: Ibuprofen 800 mg PO TID #30 tablet Cephalexin [Keflex] 500 mg PO BID #20 capsule Tramadol HCl [Ultram -] 50 mg PO Q6H #20 tablet MDD 4 - Patient Instructions Printed Discharge Instructions: DI for Laceration Repair -- Simple, DI for Alcohol Abuse - Post Discharge Activity Work/School Note: Back to Work
[2016-09-22] MEDS ORDERED: CEFAZOLIN (PRE-DOCKED) 50 ML IVPB ONE (17:05)
[2016-09-22 17:59] LABS: EOSINOPHIL 1.1 % (0-4.5); MCH 30.8 pg (25.7-33.7); MCHC 33.2 g/dl (32.0-35.9); MEAN CELL VOLUME 92.8 fl (80-96); MEAN PLT VOLUME 7.9 fl (7.5-11.1); NEUTROPHILS 68.4 % (42.8-82.8); PLATELET COUNT 295 K/MM3 (134-434); RDW 14.9 % (11.9-15.9); WHITE BLOOD COUNT 7.6 K/mm3 (4.0-10.0)
[2016-09-22 18:26] LABS: ALBUMIN 3.6 g/dl (3.4-5.0); ALK PHOS 80 U/L (45-117); ANION GAP 14 (8-16); BILIRUBIN,TOTAL 0.4 mg/dL (0.2-1.0); CALCIUM 8.7 mg/dL (8.5-10.1); CO2 25 mmol/L (21-32); GLUCOSE,RANDOM 120 mg/dL (74-106); SGOT/AST 50 U/L (15-37); SGPT/ALT 54 U/L (12-78); TOT PROT 6.9 g/dl (6.4-8.2)
[2016-09-22] MEDS ORDERED: LORAZEPAM CARPU-JECT 2 MG/ML DISP.SYRIN IM ONE (21:28)
[2016-09-22] MEDS ORDERED: LORAZEPAM CARPU-JECT 2 MG/ML DISP.SYRIN ONE (21:39)
[2016-09-23] MEDS ORDERED: LIDOCAINE HCL/PF 1% SDV 5ML VIAL ONE (01:18)
[2016-09-23] MEDS ORDERED: morphine CARPU-JECT 4 MG/1 ML DISP.SYRIN IVPUSH ONE (01:52)
[2016-09-23] MEDS ORDERED: morphine CARPU-JECT 4 MG/1 ML DISP.SYRIN ONE (01:53)
[2016-09-23] MEDS ORDERED: IBUPROFEN 400 MG TABLET (FP) PO ONE (05:47)
--- NOTE | 2016-09-23 05:48 | PDOC ---
*Physical Exam - Vital Signs Last Vital Signs Temp Pulse Resp BP Pulse Ox 98.3 F 84 18 119/63 100 09/22/16 16:40 09/22/16 16:40 09/22/16 16:40 09/22/16 16:40 09/22/16 16:40 ED Treatment Course - LABORATORY CBC & Chemistry Diagram: 09/22/16 17:01 09/22/16 17:03 - ADDITIONAL ORDERS Additional order review: Laboratory Results 09/22/16 09/22/16 17:03 17:03 Sodium 145 Potassium 4.2 Chloride 106 Carbon Dioxide 25 Anion Gap 14 BUN 18 D Creatinine 1.0 Creat Clearance w eGFR > 60 Random Glucose 120 H Calcium 8.7 Total Bilirubin 0.4 D AST 50 H ALT 54 Alkaline Phosphatase 80 D Total Protein 6.9 Albumin 3.6 Alcohol, Quantitative 366.0 H* 09/22/16 17:01 RBC 4.76 MCV 92.8 MCHC 33.2 RDW 14.9 MPV 7.9 Neutrophils % 68.4 Lymphocytes % 21.1 D Monocytes % 8.4 Eosinophils % 1.1 D Basophils % 1.0 - Medications Given in the ED: ED Medications Discontinued Medications Generic Name Dose Route Start Last Admin Trade Name Freq PRN Reason Stop Dose Admin Diphenhydramine HCl 25 mg 09/22/16 21:30 09/22/16 21:45 Benadryl Injection - IM 09/22/16 21:31 25 mg ONCE ONE Administration Cefazolin Sodium 1 gm/ 50 mls @ 100 mls/hr 09/22/16 16:59 09/22/16 17:42 Dextrose IVPB 09/22/16 17:28 100 mls/hr ONCE ONE Administration Lorazepam 2 mg 09/22/16 21:28 09/22/16 21:45 Ativan Injection - IM 09/22/16 21:29 2 mg ONCE ONE Administration Morphine Sulfate 4 mg 09/23/16 01:52 09/23/16 01:57 Morphine Injection - IVPUSH 09/23/16 01:53 4 mg ONCE ONE Administration Medical Decision Making - Medical Decision Making 09/23/16 05:50 *DC/Admit/Observation/Transfer Diagnosis at time of Disposition: Alcohol intoxication Fall Qualifiers: Encounter type: initial encounter Qualified Code(s): W19.XXXA - Unspecified fall, initial encounter Laceration of right elbow Qualifiers: Encounter type: initial encounter Qualified Code(s): S51.011A - Laceration without foreign body of right elbow, initial encounter - Discharge Dispostion Disposition: HOME Condition at time of disposition: Improved Admit: No - Prescriptions Prescriptions: Ibuprofen 800 mg PO TID #30 tablet Cephalexin [Keflex] 500 mg PO BID #20 capsule Tramadol HCl [Ultram -] 50 mg PO Q6H #20 tablet MDD 4 - Patient Instructions Printed Discharge Instructions: DI for Alcohol Abuse, DI for Laceration Repair -- Simple - Post Discharge Activity Work/School Note: Back to Work
== END 2016-09-23 06:53 | disposition home or self-care (01) ==
LOC: JER 16:25
PROC: 0HQDXZZ Repair Right Lower Arm Skin, External Approach (ICD-10-PCS; principal; 2016-09-22)
PROC: 3E02329 Introduction of Other Anti-infective into Muscle, Percutaneous Approach (ICD-10-PCS; 2016-09-22)
PROC: 3E033NZ Introduction of Analgesics, Hypnotics, Sedatives into Peripheral Vein, Percutaneous Approach (ICD-10-PCS; 2016-09-22)
DX: F10.120 Alcohol abuse with intoxication, uncomplicated (principal); S51.011A Laceration without foreign body of right elbow, initial encounter; I10 Essential (primary) hypertension; E78.5 Hyperlipidemia, unspecified; W19.XXXA Unspecified fall, initial encounter; Y93.89 Activity, other specified; Y92.410 Unspecified street and highway as the place of occurrence of the external cause
CPT/HCPCS: 36415; 70450-TC; 72128-TC; 72131-TC; 73070-TC-RT; 80053; 80307; 85025; 99285-25

== ENCOUNTER 2017-12-20 11:18 | Emergency (ER) | payer OTHER ==
[2017-12-20 11:23] VITALS: BP 180/105; PULSE 76; TEMP 98; BMI 39.3
[2017-12-20] MEDS ORDERED: KETOROLAC TROMETHAMINE 60 MG/2 ML VIAL IM ONE (11:57)
[2017-12-20] MEDS ORDERED: KETOROLAC TROMETHAMINE 60 MG/2 ML VIAL ONE (11:58)
--- NOTE | 2017-12-20 12:19 | PDOC ---
History of Present Illness - General Chief Complaint: Pain Stated Complaint: PAIN/ BACK LEGS, NUMBNESS Time Seen by Provider: 12/20/17 11:49 History Source: Patient Exam Limitations: No Limitations - History of Present Illness Initial Comments: 12/20/17 12:01 Patient came to emergency department for evaluation of right hip pain. States had bilateral up replacements done in 2014 and has had great success since that time however states digits of heavy lifting or gardening work a few days ago and since that time has had worsening pain to his right lower back extending through his gluteus and down the back of his leg since that time. Discussed this with his surgeon who is in [place] who recommended him come to emergency department for evaluation as he is unable to be seen in [facility]. Occurred: reports: last week Severity: reports: moderate (left hip) Pain Location: reports: lower extremity Method of Injury: Yes: other (heavy lifting and gardening) Loss of Consciousness: no loss of consciousness Associated Symptoms (Fall): denies symptoms Past History - Travel Traveled outside of the country in the last 30 days: No Close contact w/someone who was outside of country & ill: No - Past Medical History Allergies/Adverse Reactions: Allergies Allergy/AdvReac Type Severity Reaction Status Date / Time shellfish derived Allergy "PALATE Verified 12/20/17 11:20 BECOMES ITCHY-AFTER EATING LOBSTER" Home Medications: Ambulatory Orders Atorvastatin Calcium [Lipitor] 20 mg PO HS 11/21/17 Amlodipine Besylate [Norvasc -] 5 mg PO DAILY #30 tablet 11/22/17 Cyclobenzaprine HCl 10 mg PO Q8H PRN #14 tablet 12/20/17 COPD: No DVT: No HTN: Yes Hypercholesterolemia: Yes Kidney Stones: Yes - Surgical History Abdominal Surgery: Yes (hernia repair-LEFT) Cardiac Surgery: Yes (CARDIAC CATH-NEGATIVE) - Immunization History Immunization Up to Date: Yes - Suicide/Smoking/Psychosocial Hx Smoking History: Never smoked Have you smoked in the past 12 months: No Number of Cigarettes Smoked Daily: 0 Information on smoking cessation initiated: No Hx Alcohol Use: Yes (0.5 pint per week) Drug/Substance Use Hx: No Substance Use Type: None Review of Systems - Review of Systems Able to Perform ROS?: Yes Is the patient limited Occitan proficient: Yes Constitutional: Yes: Symptoms Reported, See HPI. No: Fever, Malaise HEENTM: No: Symptoms Reported Musculoskeletal: Yes: Symptoms Reported, Joint Swelling, Muscle Pain, Joint Stiffness All Other Systems: Reviewed and Negative (right hip) *Physical Exam - Vital Signs Last Vital Signs Temp Pulse Resp BP Pulse Ox 98.0 F 76 18 180/105 100 12/20/17 11:20 12/20/17 11:20 12/20/17 11:20 12/20/17 11:20 12/20/17 11:20 - Physical Exam General Appearance: Yes: Appropriately Dressed, Apparent Distress HEENT: positive: MAY, Normal ENT Inspection, TMs Normal, Pharynx Normal Neck: positive: Supple. negative: Tender, Lymphadenopathy (R), Lymphadenopathy (L) Respiratory/Chest: positive: Lungs Clear Gastrointestinal/Abdominal: positive: Soft. negative: Tender Musculoskeletal: positive: Normal Inspection Extremity: positive: Normal Inspection, Tender. negative: Normal Capillary Refill, Normal Range of Motion Integumentary: positive: Normal Color, Dry, Warm, Pale. negative: Rash, Ecchymosis, Bruising Neurologic: positive: communications strategist II-XII NML intact, Fully Oriented, Alert, Normal Mood/ Affect, Normal Response, Motor Strength 5/ ED Treatment Course - RADIOLOGY Radiology Studies Ordered: Category Date Time Status HIP-RIGHT [RAD] Stat Radiology 12/20/17 11:57 Ordered Progress Note - Progress Note Progress Note: X-ray negative for fractures or dislocations, medicated with IM Toradol 60 mg and given a prescription for Flexeril for antispasmodic purposes encouraged to continue NSAIDs until pain and spasm is resolved *DC/Admit/Observation/Transfer Diagnosis at time of Disposition: Muscle strain - Discharge Dispostion Disposition: HOME Condition at time of disposition: Stable Decision to Admit order: No - Prescriptions Prescriptions: Cyclobenzaprine HCl 10 mg PO Q8H PRN #14 tablet PRN Reason: spasm - Referrals Referrals: Lanre Peres MD [Staff Physician] - - Patient Instructions Printed Discharge Instructions: DI for Back Spasm Additional Instructions: Rest, no heavy lifting or exercise until pain is resolved Hot soaks to neck and low back as often as possible/hot showers or Jacuzzis No massage or therapy until spasm is gone Continue ibuprofen 2200 mg tablets every 6 hours for the next 3 days then as needed for pain and swelling Cyclobenzaprine 1-10mg every 8 hours as needed for spasm If not significant improvement within 24 hours with medication and rest regime, followup with private physician for change in medications and /or therapy. - Post Discharge Activity Forms/Work/School Notes: Back to Work
== END 2017-12-20 12:31 | disposition home or self-care (01) ==
LOC: JERFT 11:18
PROC: 3E0233Z Introduction of Anti-inflammatory into Muscle, Percutaneous Approach (ICD-10-PCS; principal; 2017-12-20)
DX: S39.012A Strain of muscle, fascia and tendon of lower back, initial encounter (principal); X50.0XXA Overexertion from strenuous movement or load, initial encounter; Y93.H2 Activity, gardening and landscaping; Y92.017 Garden or yard in single-family (private) house as the place of occurrence of the external cause; Y99.8 Other external cause status; I10 Essential (primary) hypertension; E78.00 Pure hypercholesterolemia, unspecified; Z98.61 Coronary angioplasty status; Z87.442 Personal history of urinary calculi
CPT/HCPCS: 73502-TC-RT; 99281-25

== ENCOUNTER 2019-05-22 07:53 | Emergency (ER) | payer OTHER ==
[2019-05-22 08:01] VITALS: BP 146/90; PULSE 75; TEMP 96.2; BMI 37.3
[2019-05-22] MEDS ORDERED: guaiFENesin/CODEINE 10 ML UNIT-DOSE CUPS PO ONE (08:54)
[2019-05-22] MEDS ORDERED: guaiFENesin/CODEINE 5 ML UNIT-DOSE CUPS PO ONE (08:57)
--- NOTE | 2019-05-22 08:58 | PDOC ---
History of Present Illness - General Chief Complaint: Cold Symptoms Stated Complaint: CHEST AND BACK PAIN,FEVER Time Seen by Provider: 05/22/19 08:12 History Source: Patient Exam Limitations: No Limitations - History of Present Illness Is this a multiple visit Asthma Patient?: No Possible Cause: Yes: occasional episodes, smoke exposure Modifying Factors: improves with: coughing Associated Symptoms: reports: cough, fever/chills, muscle aches (Chest and back) , nasal congestion Past History - Travel Traveled outside of the country in the last 30 days: No Close contact w/someone who was outside of country & ill: No - Past Medical History Allergies/Adverse Reactions: Allergies Allergy/AdvReac Type Severity Reaction Status Date / Time shellfish derived Allergy "PALATE Verified 05/22/19 08:00 BECOMES ITCHY-AFTER EATING LOBSTER" Home Medications: Ambulatory Orders Azithromycin [Zithromax Tri-Jeff (3 DAYS) -] 500 mg PO DAILY #3 tablet 05/22/19 Guaifenesin AC [Robitussin AC] 10 ml PO Q8H PRN #100 ml MDD 30 05/22/19 Loratadine [Claritin] 10 mg PO DAILY #7 tablet 05/22/19 COPD: No DVT: No HTN: Yes Hypercholesterolemia: Yes Kidney Stones: Yes - Surgical History Abdominal Surgery: Yes (hernia repair-LEFT) Cardiac Surgery: Yes (CARDIAC CATH-NEGATIVE) - Immunization History Immunization Up to Date: Yes - Psycho Social/Smoking Cessation Hx Smoking History: Never smoked Have you smoked in the past 12 months: No Number of Cigarettes Smoked Daily: 0 Hx Alcohol Use: No Drug/Substance Use Hx: No Substance Use Type: None Patient Lives Alone: Yes Lives with/in: lives alone Review of Systems - Review of Systems Able to Perform ROS?: Yes Constitutional: Yes: Chills HEENTM: Yes: Symptoms Reported, Nose Congestion Respiratory: Yes: Cough Cardiac (ROS): No: Symptoms Reported ABD/GI: No: Symptoms Reported : No: Symptoms Reported Musculoskeletal: Yes: Back Pain, Joint Pain Integumentary: No: Symptoms Reported Neurological: No: Symptoms reported Endocrine: No: Symptoms Reported Hematologic/Lymphatic: No: Symptoms Reported *Physical Exam - Vital Signs Last Vital Signs Temp Pulse Resp BP Pulse Ox 96.2 F L 75 18 146/90 96 05/22/19 07:58 05/22/19 07:58 05/22/19 07:58 05/22/19 07:58 05/22/19 07:58 - Physical Exam General Appearance: Yes: Nourished, Appropriately Dressed. No: Apparent Distress HEENT: positive: MAY, TMs Normal, Pharynx Normal, Muffled/Hoarse voice (hoarse) Neck: positive: Normal Thyroid, Supple Respiratory/Chest: positive: Chest Tender (Upper chest bilaterally), Lungs Clear , Normal Breath Sounds. negative: Respiratory Distress, Accessory Muscle Use Cardiovascular: positive: Regular Rhythm, Regular Rate. negative: Murmur Gastrointestinal/Abdominal: positive: Soft. negative: Tenderness Musculoskeletal: positive: Other (Upper back tenderness) Extremity: positive: Normal Capillary Refill. negative: Pedal Edema Integumentary: positive: Normal Color, Warm, Moist Neurologic: positive: Motor Strength 5/5 (Ambulatory) ED Treatment Course - RADIOLOGY Radiology Studies Ordered: Category Date Time Status CHEST PA & LAT [RAD] Stat Radiology 05/22/19 08:23 Completed Medical Decision Making - Medical Decision Making 05/22/19 08:34 Chief complaint: Cough, nasal congestion chills and chest and back soreness for the past few weeks. Patient states recently started smoking cigars about 2 months ago at a cigar lounge which he states does every few days. otherwise no environmental or social concern. Patient has taken Mucinex with moderate effect and took Motrin this morning Exam: Upper back and upper chest tenderness on exam. Lungs clear to auscultation. No sinus tenderness no rhinorrhea Plan: Chest x-ray Robitussin-AC. if normal will discharge home with azithromycin , Robitussin and Claritin 05/22/19 09:05 Chest x-ray shows no acute process. Will discharge home with medications listed above along with recommendations Discharge - Discharge Information Problems reviewed: Yes Clinical Impression/Diagnosis: Bronchitis Disposition: HOME - Additional Discharge Information Prescriptions: Azithromycin [Zithromax Tri-Jeff (3 DAYS) -] 500 mg PO DAILY #3 tablet Guaifenesin AC [Robitussin AC] 10 ml PO Q8H PRN #100 ml MDD 30 PRN Reason: Cough Loratadine [Claritin] 10 mg PO DAILY #7 tablet - Follow up/Referral - Patient Discharge Instructions Patient Printed Discharge Instructions: DI for Acute Bronchitis Additional Instructions: Avoid triggers such as smoking, environmental exposure, and dust. Take medication as needed. Avoid driving a vehicle or operating heavy machinery if taking the Robitussin with codeine. - Post Discharge Activity Work/Back to School Note: Back to Work
--- NOTE | 2019-05-22 15:57 | EKG ---
Test Reason : Blood Pressure : / mmHG Vent. Rate : 062 BPM Atrial Rate : 062 BPM P-R Int : 170 ms QRS Dur : 098 ms QT Int : 440 ms P-R-T Axes : 025 039 038 degrees QTc Int : 446 ms NORMAL SINUS RHYTHM NORMAL ECG WHEN COMPARED WITH ECG OF 21-NOV-2017 02:33, NO SIGNIFICANT CHANGE WAS FOUND Confirmed by GISSELLE SCHMIDT MD ([id number]) on 05/22/2019 3:56:30 PM Referred By: Confirmed By:GISSELLE SCHMIDT MD
== END 2019-05-22 09:00 | disposition home or self-care (01) ==
LOC: JER 07:53
DX: J40 Bronchitis, not specified as acute or chronic (principal); I25.10 Atherosclerotic heart disease of native coronary artery without angina pectoris; I10 Essential (primary) hypertension; Z98.61 Coronary angioplasty status; E78.00 Pure hypercholesterolemia, unspecified; Z87.442 Personal history of urinary calculi; Z91.013 Allergy to seafood
CPT/HCPCS: 71046-TC-FY; 93005; 93010; 99281-25

== ENCOUNTER 2020-07-06 17:59 | Emergency (ER) | payer OTHER ==
[2020-07-06 18:24] VITALS: BMI 34.2
[2020-07-06] MEDS ORDERED: LACTATED RINGERS SOLUTION 1000 ML INFUS.BAG IV ONE (19:31)
[2020-07-06 21:21] LABS: BASO % 0.3 % (0-2.0); EOS % 0.8 % (0-4.5); HEMATOCRIT 37.8 % (35.4-49); MCH 29.7 pg (25.7-33.7); MCHC 34.3 g/dl (32.0-35.9); MEAN CELL VOLUME 86.7 fl (80-96); MEAN PLT VOLUME 8.8 fl (7.5-11.1); MONO % 15.1 % (3.8-10.2); NEUT % 53.8 % (42.8-82.8); PLATELET COUNT 133 K/MM3 (134-434); RBC 4.36 M/mm3 (4.00-5.60); RDW 18.3 % (11.9-15.9); WHITE BLOOD COUNT 4.9 K/mm3 (4.0-10.0)
[2020-07-06 21:37] LABS: CHLORIDE 109 mmol/L (98-107); SODIUM 141 mmol/L (136-145)
[2020-07-06 21:40] LABS: ANION GAP 4 MMOL/L (8-16); BLOOD UREA NITROGEN 12.8 mg/dL (7-18); CALCIUM 8.5 mg/dL (8.5-10.1); CO2 28 mmol/L (21-32); GLUCOSE,RANDOM 81 mg/dL (74-106); LIPASE 379 U/L (73-393); MAGNESIUM 2.1 mg/dL (1.8-2.4)
[2020-07-06 21:41] LABS: ALBUMIN 3.2 g/dl (3.4-5.0)
[2020-07-06 21:43] LABS: SGOT/AST 22 U/L (15-37); SGPT/ALT 26 U/L (13-61)
[2020-07-06 21:45] LABS: TOT PROT 6.1 g/dl (6.4-8.2)
[2020-07-06 21:46] LABS: ALK PHOS 115 U/L (45-117)
[2020-07-06 23:30] VITALS: BP 102/61; PULSE 72; TEMP 98.4
== END 2020-07-07 00:02 | disposition home or self-care (01) ==
LOC: JER 17:59
DX: R19.7 Diarrhea, unspecified (principal)
CPT/HCPCS: 36415; 71045-TC-FY; 80053; 82550; 83690; 83735; 84100; 84484; 85025; 87426; 87804; 93005; 93010; 99285-25; C9803; U0003

== ENCOUNTER 2022-09-13 08:08 | Inpatient (IN) | payer OTHER ==
[2022-09-13 08:18] VITALS: BMI 29.9
[2022-09-13 10:32] LABS: BASO % 0.4 % (0-2.0); EOS % 2.5 % (0-4.5); HEMOGLOBIN 10.5 GM/dL (11.7-16.9); LYMPH % 10.2 % (8-40); MCH 26.3 pg (25.7-33.7); MCHC 33.9 g/dl (32.0-35.9); MEAN CELL VOLUME 77.4 fl (80-96); MEAN PLT VOLUME 8.3 fl (7.5-11.1); MONO % 15.1 % (3.8-10.2); NEUT % 71.8 % (42.8-82.8); PLATELET COUNT 185 10^3/uL (134-434); RDW 14.8 % (11.9-15.9); WHITE BLOOD COUNT 5.6 K/mm3 (4.0-10.0)
[2022-09-13 10:39] LABS: INR 1.27 (0.83-1.09); PROTHROMBIN TIME (PATIENT) 14.7 SEC (9.7-13.0)
[2022-09-13 10:42] LABS: ACTIVATED PTT 31.3 SECONDS (25.2-36.5)
[2022-09-13 10:57] LABS: BLOOD UREA NITROGEN 21.5 mg/dL (7-18); CALCIUM 8.7 mg/dL (8.5-10.1)
[2022-09-13 10:58] LABS: ALBUMIN 2.9 g/dl (3.4-5.0)
[2022-09-13 11:01] LABS: CREATININE 1.2 mg/dL (0.55-1.3)
[2022-09-13 11:02] LABS: BILIRUBIN,TOTAL 1.9 mg/dL (0.2-1); TOT PROT 6.6 g/dl (6.4-8.2)
[2022-09-13] MEDS: SPIRONOLACTONE 25 MG TABLET PO SCH (15:53)
[2022-09-13] MEDS: FUROSEMIDE 20 MG TABLET (FP) PO SCH (15:53)
[2022-09-13] MEDS ORDERED: SPIRONOLACTONE 25 MG TABLET ONE (15:56)
[2022-09-13] MEDS ORDERED: FUROSEMIDE 20 MG TABLET (FP) ONE (15:57)
[2022-09-13] MEDS ORDERED: MELATONIN 5 MG TABLETS PO ONE (21:13)
[2022-09-13] MEDS ORDERED: MELATONIN 5 MG TABLETS ONE (21:18)
[2022-09-14 07:25] LABS: BASO % 0.5 % (0-2.0); EOS % 2.9 % (0-4.5); HEMATOCRIT 31.4 % (35.4-49); HEMOGLOBIN 10.7 GM/dL (11.7-16.9); LYMPH % 13.9 % (8-40); MCH 26.1 pg (25.7-33.7); MCHC 33.9 g/dl (32.0-35.9); MEAN CELL VOLUME 76.9 fl (80-96); MEAN PLT VOLUME 8.5 fl (7.5-11.1); MONO % 15.3 % (3.8-10.2); NEUT % 67.4 % (42.8-82.8); PLATELET COUNT 191 10^3/uL (134-434); RBC 4.09 M/mm3 (4.00-5.60); RDW 14.6 % (11.9-15.9); WHITE BLOOD COUNT 5.1 K/mm3 (4.0-10.0)
[2022-09-14 07:51] LABS: ALBUMIN 2.9 g/dl (3.4-5.0); CALCIUM 8.7 mg/dL (8.5-10.1)
[2022-09-14 07:52] LABS: BLOOD UREA NITROGEN 19.9 mg/dL (7-18)
[2022-09-14 07:54] LABS: CREATININE 1.2 mg/dL (0.55-1.3)
[2022-09-14 07:57] LABS: BILIRUBIN,TOTAL 2.2 mg/dL (0.2-1); TOT PROT 6.6 g/dl (6.4-8.2)
[2022-09-14] MEDS ORDERED: SPIRONOLACTONE 25 MG TABLET ONE (08:55)
[2022-09-14] MEDS ORDERED: FUROSEMIDE 20 MG TABLET (FP) ONE (08:55)
[2022-09-14] MEDS: SPIRONOLACTONE 25 MG TABLET PO SCH (09:01)
[2022-09-14] MEDS: FUROSEMIDE 20 MG TABLET (FP) PO SCH (09:02)
[2022-09-14] MEDS: ALBUMIN HUMAN 25% 12.5 GM/50 ML VIAL IV SCH ×2 (16:48→17:02)
[2022-09-14 18:02] LABS: BF WBC & OTHER NUCLEATED CELLS 694 /mm3; BODY FLUID MACROPHAGES 4 %; BODY FLUID MESOTHELIAL 4 %; BODY FLUID MONOCYTE 27 %; BODYL FLD EOSINOPHIL 1 %
[2022-09-14] MEDS: CEFTRIAXONE 2 GM in DEXTROSE 5%-WATER 100 ML IVPB SCH (23:50)
[2022-09-15] MEDS: FUROSEMIDE 20 MG TABLET (FP) PO SCH (09:34)
[2022-09-15] MEDS: CEFTRIAXONE 2 GM in DEXTROSE 5%-WATER 100 ML IVPB SCH (09:34)
[2022-09-15] MEDS: SPIRONOLACTONE 25 MG TABLET PO SCH ×2 (09:34→21:23)
[2022-09-15] MEDS ORDERED: FUROSEMIDE 20 MG TABLET (FP) PO SCH (10:43)
[2022-09-15 11:12] LABS: BASO % 0.6 % (0-2.0); EOS % 2.4 % (0-4.5); HEMATOCRIT 31.4 % (35.4-49); HEMOGLOBIN 10.8 GM/dL (11.7-16.9); LYMPH % 10.5 % (8-40); MCH 26.1 pg (25.7-33.7); MCHC 34.5 g/dl (32.0-35.9); MEAN CELL VOLUME 75.5 fl (80-96); MEAN PLT VOLUME 8.8 fl (7.5-11.1); MONO % 11.1 % (3.8-10.2); NEUT % 75.4 % (42.8-82.8); PLATELET COUNT 233 10^3/uL (134-434); RBC 4.16 M/mm3 (4.00-5.60); RDW 14.6 % (11.9-15.9); WHITE BLOOD COUNT 5.7 K/mm3 (4.0-10.0)
[2022-09-15 11:31] LABS: CALCIUM 8.6 mg/dL (8.5-10.1)
[2022-09-15 11:34] LABS: CREATININE 1.2 mg/dL (0.55-1.3)
[2022-09-15 11:37] LABS: IRON SERUM 20 ug/dL (50-175); TOTAL IRON BINDING CAPACITY 273 ug/dL (250-450)
[2022-09-15] MEDS ORDERED: IRON SUCROSE INJECTION 200 MG in SODIUM CHLORIDE 90 ML IVPB ONE (13:00)
[2022-09-15 19:06] VITALS: RESP 18
[2022-09-16] MEDS: SPIRONOLACTONE 25 MG TABLET PO SCH (09:59)
[2022-09-16] MEDS ORDERED: IRON SUCROSE INJECTION 200 MG in SODIUM CHLORIDE 90 ML IVPB ONE (10:00)
[2022-09-16 10:06] LABS: INR 1.26 (0.83-1.09); PROTHROMBIN TIME (PATIENT) 14.6 SEC (9.7-13.0)
[2022-09-16 10:23] LABS: BLOOD UREA NITROGEN 19.3 mg/dL (7-18); CALCIUM 8.6 mg/dL (8.5-10.1)
[2022-09-16 10:24] LABS: ALBUMIN 2.9 g/dl (3.4-5.0)
[2022-09-16 10:26] LABS: BILIRUBIN,DIRECT 0.4 mg/dL (0.0-0.2)
[2022-09-16 10:27] LABS: CREATININE 1.2 mg/dL (0.55-1.3)
[2022-09-16 10:29] LABS: BILIRUBIN,TOTAL 1.3 mg/dL (0.2-1); TOT PROT 6.7 g/dl (6.4-8.2)
[2022-09-16 10:37] LABS: BASO % 0.4 % (0-2.0); EOS % 2.9 % (0-4.5); HEMATOCRIT 31.9 % (35.4-49); HEMOGLOBIN 10.9 GM/dL (11.7-16.9); LYMPH % 11.5 % (8-40); MCH 26.1 pg (25.7-33.7); MCHC 34.3 g/dl (32.0-35.9); MEAN CELL VOLUME 76.2 fl (80-96); MEAN PLT VOLUME 8.7 fl (7.5-11.1); NEUT % 72.2 % (42.8-82.8); PLATELET COUNT 227 10^3/uL (134-434); RBC 4.18 M/mm3 (4.00-5.60); RDW 14.6 % (11.9-15.9)
[2022-09-16 15:07] VITALS: BP 110/68; PULSE 76; TEMP 97.8
[2022-09-16 16:08] LABS: BODY FLUID ALBUMIN 1.5 g/dL (Not Estab.)
[2022-09-17] MEDS ORDERED: IRON SUCROSE INJECTION 200 MG in SODIUM CHLORIDE 90 ML IVPB ONE (10:00)
== END 2022-09-16 18:29 | disposition home or self-care (01) | DRG 433 ==
LOC: JER 08:08 → JERBED 14:47 → OBSVTOIN 17:09 → J8W 09-14 20:45
PROVIDERS: ADMIT Internal Medicine; ATTEND Nurse Practitioner Acute Care
PROC: 0W9G3ZZ Drainage of Peritoneal Cavity, Percutaneous Approach (ICD-10-PCS; principal; 2022-09-14)
DX: K70.31 Alcoholic cirrhosis of liver with ascites (principal); K76.6 Portal hypertension; N17.9 Acute kidney failure, unspecified; E78.00 Pure hypercholesterolemia, unspecified; I10 Essential (primary) hypertension; R07.89 Other chest pain; M10.9 Gout, unspecified; I25.10 Atherosclerotic heart disease of native coronary artery without angina pectoris; N20.9 Urinary calculus, unspecified; F10.11 Alcohol abuse, in remission; Z96.643 Presence of artificial hip joint, bilateral; Z98.84 Bariatric surgery status
CPT/HCPCS: 36415; 71046-TC-FY; 74177-TC; 74183-TC; 76700-TC; 76942-TC; 80048; 80053; 80076; 82042; 82105; 82150; 82465; 82728; 82945; 83540; 83550; 83615; 83880; 84157; 84478; 84484; 85025; 85610; 85730; 86704; 86708; 86803; 87070; 87075; 87102; 87116; 87205; 87206; 87210; 87340; 87517; 88108; 88305-TC; 93005; 93010; 93306-TC; 99285-25; C9803-CS; G0378; J1756; P9047; Q9967; U0003; U0005

== ENCOUNTER 2023-08-16 09:34 | Emergency (ER) | payer OTHER ==
[2023-08-16 09:40] VITALS: BMI 29.4
[2023-08-16] MEDS ORDERED: ACETAMINOPHEN 325 MG TABLET (FP) ONE (10:19)
[2023-08-16] MEDS: ACETAMINOPHEN 325 MG TABLET (FP) PO ONE (10:45)
[2023-08-16] MEDS ORDERED: CEFTRIAXONE 1 GM/50 ML BAG ONE (10:47)
[2023-08-16] MEDS ORDERED: AZITHROMYCIN IVPB 500 MG/250 ML BAG IVPB ONE (10:47)
[2023-08-16 10:52] LABS: BASO % 0.5 % (0-2.0); EOS % 1.2 % (0-4.5); HEMATOCRIT 29.8 % (35.4-49); HEMOGLOBIN 9.7 GM/dL (11.7-16.9); LYMPH % 11.6 % (8-40); MCH 22.6 pg (25.7-33.7); MCHC 32.6 g/dl (32.0-35.9); MEAN CELL VOLUME 69.1 fl (80-96); MEAN PLT VOLUME 8.4 fl (7.5-11.1); MONO % 15.8 % (3.8-10.2); NEUT % 70.9 % (42.8-82.8); PLATELET COUNT 212 10^3/uL (134-434); RBC 4.32 M/mm3 (4.00-5.60); RDW 17.2 % (11.9-15.9); WHITE BLOOD COUNT 6.4 K/mm3 (4.0-10.0)
[2023-08-16] MEDS: CEFTRIAXONE 1 GM in DEXTROSE 5%-WATER - 100 ML IVPB ONE (10:55)
[2023-08-16 11:10] LABS: POTASSIUM 4.3 mmol/L (3.5-5.1)
[2023-08-16 11:12] LABS: CALCIUM 9.3 mg/dL (8.5-10.1)
[2023-08-16 11:13] LABS: BLOOD UREA NITROGEN 24.2 mg/dL (7-18)
[2023-08-16 11:16] LABS: CREATININE 1.1 mg/dL (0.55-1.3)
[2023-08-16 11:17] LABS: TOT PROT 6.7 g/dl (6.4-8.2)
[2023-08-16] MEDS: AZITHROMYCIN IVPB 500 MG in DEXTROSE 5%-WATER - 250 ML IVPB ONE (11:19)
[2023-08-16 12:31] VITALS: BP 106/70; PULSE 64; RESP 20; TEMP 98.2
== END 2023-08-16 12:32 | disposition home or self-care (01) ==
LOC: JER 09:34
DX: R07.89 Other chest pain (principal); J34.89 Other specified disorders of nose and nasal sinuses; J02.9 Acute pharyngitis, unspecified; R53.81 Other malaise; R50.9 Fever, unspecified; J45.21 Mild intermittent asthma with (acute) exacerbation; J01.00 Acute maxillary sinusitis, unspecified
CPT/HCPCS: 36415; 71045-TC-FY; 80053; 84484; 85025; 93005; 93010; 99285-25